=== PATIENT | female | born 1965 | race Caucasian/White ===

== ENCOUNTER 2019-08-13 17:20 | Emergency (ER) | payer MEDICARE, BC ==
--- NOTE | 2019-08-13 18:19 | EDM.PDOC ---
ED HPI GENERAL MEDICAL PROBLEM - General Chief Complaint: General Stated Complaint: DISORIENTED Time Seen by Provider: 08/13/19 18:01 Source of Information: Reports: Patient, Family History Limitations: Reports: No Limitations - History of Present Illness INITIAL COMMENTS - FREE TEXT/NARRATIVE: Patient's unfortunate 54-year-old female who presents in respiratory day with complaint of altered mental status. Family reports the patient was normocytic health until this morning when she started becoming confused. Patient was not willing to eat or drink so she was brought to the emergency department for evaluation. She has a history of metastatic breast cancer reports her last radiation therapy was 5 months ago. On arrival emergency department the patient is oriented to person and place but not time. She denies any symptoms at this time Neck Pain Score (Numeric/FACES): 5 Head Pain Score (Numeric/FACES): 5 - Related Data Allergies Allergy/AdvReac Type Severity Reaction Status Date / Time No Known Allergies Allergy Verified 08/04/18 18:25 Home Meds: Home Meds Alpelisib [Piqray] 1 tab PO DAILY 08/13/19 [History] Past Medical History Oncologic (Cancer) History: Reports: Breast Social & Family History - Tobacco Use Smoking Status *Q: Never Smoker - Caffeine Use Caffeine Use: Reports: Coffee, Soda - Recreational Drug Use Recreational Drug Use: No ED ROS GENERAL - Review of Systems Review Of Systems: Unable To Obtain (Altered mental status) Reason Not Obtained: AMS Constitutional: Denies: Fever, Chills Neurological: Reports: Confusion. Denies: Dizziness, Headache ED EXAM, GENERAL - Physical Exam Exam: See Below Exam Limited By: No Limitations General Appearance: Alert, Mild Distress, Other (Pleasantly confused) Eye Exam: Bilateral Eye: PERRL, Other (Unable to follow commands) Nose: Normal Inspection, Normal Mucosa, No Blood Head: Atraumatic, Normocephalic Neck: Normal Inspection, Supple, Non-Tender, Full Range of Motion Respiratory/Chest: No Respiratory Distress, Lungs Clear, Normal Breath Sounds, No Accessory Muscle Use, Chest Non-Tender Cardiovascular: No Edema, Other (Tachycardia) GI/Abdominal: Normal Bowel Sounds, Soft, Non-Tender, No Organomegaly, No Distention, No Abnormal Bruit, No Mass Back Exam: Normal Inspection, Full Range of Motion, NT Extremities: Normal Inspection, Normal Range of Motion, Non-Tender, Normal Capillary Refill, No Pedal Edema Neurological: Alert, Other (Oriented to person and place only). No: Oriented Skin Exam: Warm, Dry, No Rash EKG INTERPRETATION EKG Date: 08/13/19 Time: 18:30 Rhythm: NSR [place]: Normal P-Wave: Present QRS: Normal ST-T: Normal QT: Normal Course - Vital Signs Last Recorded V/S: Last Vital Signs Temp 99.2 F 08/13/19 17:33 Pulse 100 08/13/19 17:33 Resp 18 08/13/19 17:33 BP 138/94 H 08/13/19 17:33 Pulse Ox 3 L 08/13/19 17:33 - Orders/Labs/Meds Orders: Active Orders 24 hr Category Date Time Status EKG Documentation Completion [RC] ASDIRECTED Care 08/13/19 18:14 Active Insert Weiner Catheter [Insert Urinary Catheter] [OM.PC] Care 08/13/19 20:15 Ordered Stat Urinary Catheter Assessment [RC] ASDIRECTED Care 08/13/19 20:22 Active Chest 1V Frontal [CR] Stat Exams 08/13/19 18:15 Taken CULTURE BLOOD [BC] Stat Lab 08/13/19 19:05 Received CULTURE BLOOD [BC] Stat Lab 08/13/19 19:05 Received Blood Culture x2 Reflex Set [OM.PC] Stat Oth 08/13/19 18:15 Ordered EKG 12 Lead [EK] Stat Ther 08/13/19 18:13 Ordered Labs: Laboratory Tests 08/13/19 08/13/19 08/13/19 Range/Units 19:00 19:00 19:00 WBC 5.83 (3.98-10.04) K/mm3 RBC 4.50 (3.98-5.22) M/mm3 Hgb 13.5 (11.2-15.7) gm/dl Hct 40.5 (34.1-44.9) % MCV 90.0 (79.4-94.8) fl MCH 30.0 (25.6-32.2) pg MCHC 33.3 (32.2-35.5) g/dl RDW Std Deviation 46.1 (36.4-46.3) fL Plt Count 165 L (182-369) K/mm3 MPV 8.5 L (9.4-12.3) fl Neut % (Auto) 67.5 (34.0-71.1) % Lymph % (Auto) 14.4 L (19.3-51.7) % [place] % (Auto) 9.1 (4.7-12.5) % Eos % (Auto) 7.4 H (0.7-5.8) Baso % (Auto) 0.7 (0.1-1.2) % Neut # (Auto) 3.94 (1.56-6.13) K/mm3 Lymph # (Auto) 0.84 L (1.18-3.74) K/mm3 [place] # (Auto) 0.53 H (0.24-0.36) K/mm3 Eos # (Auto) 0.43 H (0.04-0.36) K/mm3 Baso # (Auto) 0.04 (0.01-0.08) K/mm3 Sodium 145 (136-145) mEq/L Potassium 3.6 (3.5-5.1) mEq/L Chloride 106 (98-107) mEq/L Carbon Dioxide 27 (21-32) mEq/L Anion Gap 15.6 H (5-15) BUN 14 (7-18) mg/dL Creatinine 0.6 (0.55-1.02) mg/dL Est Cr Clr Drug Dosing 91.48 mL/min Estimated GFR (MDRD) > 60 (>60) mL/min BUN/Creatinine Ratio 23.3 H (14-18) Glucose 128 H (74-106) mg/dL Lactic Acid 1.0 (0.4-2.0) mmol/L Calcium 9.0 (8.5-10.1) mg/dL Total Bilirubin 0.4 (0.2-1.0) mg/dL AST 27 (15-37) U/L ALT 24 (14-59) U/L Alkaline Phosphatase 66 (46-116) U/L Troponin I < 0.017 (0.00-0.056) ng/mL Total Protein 6.6 (6.4-8.2) g/dl Albumin 3.1 L (3.4-5.0) g/dl Globulin 3.5 gm/dL Albumin/Globulin Ratio 0.9 L (1-2) Urine Color (Yellow) Urine Appearance (Clear) Urine pH (5.0-8.0) Ur Specific [place] (1.005-1.030) Urine Protein (Negative) Urine Glucose (UA) (Negative) Urine Ketones (Negative) Urine Occult Blood (Negative) Urine Nitrite (Negative) Urine Bilirubin (Negative) Urine Urobilinogen (0.2-1.0) Ur Leukocyte Esterase (Negative) Urine RBC (0-5) /hpf Urine WBC (0-5) /hpf Ur Squamous Epith Cells (0-5) /hpf Amorphous Sediment (NOT SEEN) /hpf Urine Bacteria (FEW) /hpf Urine Mucus (FEW) /hpf Urine Opiates Screen (ZVTGJM=464) Ur Buprenorphine Scrn (CUTOFF=10) Ur Oxycodone Screen (UWV9NM=309) Urine Methadone Screen (TIZEAM=364) Ur Propoxyphene Screen (OQNARW=655) Ur Barbiturates Screen (GLKBBO=871) Ur Tricyclics Screen (DMOLJR=383) Ur Phencyclidine Scrn (CUTOFF=25) Ur Amphetamine Screen (QSLPRC=946) U Methamphetamines Scrn (NPZGIZ=954) U Benzodiazepines Scrn (BWULNX=488) U Cocaine Metab Screen (VGLTVM=067) U Marijuana (THC) Screen (CUTOFF=50) Ethyl Alcohol 0.00 (0.00) gm% 08/13/19 08/13/19 Range/Units 20:21 20:21 WBC (3.98-10.04) K/mm3 RBC (3.98-5.22) M/mm3 Hgb (11.2-15.7) gm/dl Hct (34.1-44.9) % MCV (79.4-94.8) fl MCH (25.6-32.2) pg MCHC (32.2-35.5) g/dl RDW Std Deviation (36.4-46.3) fL Plt Count (182-369) K/mm3 MPV (9.4-12.3) fl Neut % (Auto) (34.0-71.1) % Lymph % (Auto) (19.3-51.7) % [place] % (Auto) (4.7-12.5) % Eos % (Auto) (0.7-5.8) Baso % (Auto) (0.1-1.2) % Neut # (Auto) (1.56-6.13) K/mm3 Lymph # (Auto) (1.18-3.74) K/mm3 [place] # (Auto) (0.24-0.36) K/mm3 Eos # (Auto) (0.04-0.36) K/mm3 Baso # (Auto) (0.01-0.08) K/mm3 Sodium (136-145) mEq/L Potassium (3.5-5.1) mEq/L Chloride (98-107) mEq/L Carbon Dioxide (21-32) mEq/L Anion Gap (5-15) BUN (7-18) mg/dL Creatinine (0.55-1.02) mg/dL Est Cr Clr Drug Dosing mL/min Estimated GFR (MDRD) (>60) mL/min BUN/Creatinine Ratio (14-18) Glucose (74-106) mg/dL Lactic Acid (0.4-2.0) mmol/L Calcium (8.5-10.1) mg/dL Total Bilirubin (0.2-1.0) mg/dL AST (15-37) U/L ALT (14-59) U/L Alkaline Phosphatase (46-116) U/L Troponin I (0.00-0.056) ng/mL Total Protein (6.4-8.2) g/dl Albumin (3.4-5.0) g/dl Globulin gm/dL Albumin/Globulin Ratio (1-2) Urine Color Yellow (Yellow) Urine Appearance Slt cloudy H (Clear) Urine pH 6.0 (5.0-8.0) Ur Specific [place] > or = 1.030 (1.005-1.030) Urine Protein Trace H (Negative) Urine Glucose (UA) Negative (Negative) Urine Ketones Negative (Negative) Urine Occult Blood 3+ H (Negative) Urine Nitrite Negative (Negative) Urine Bilirubin Negative (Negative) Urine Urobilinogen 0.2 (0.2-1.0) Ur Leukocyte Esterase Negative (Negative) Urine RBC 40-50 H (0-5) /hpf Urine WBC 0-5 (0-5) /hpf Ur Squamous Epith Cells 0-5 (0-5) /hpf Amorphous Sediment Moderate H (NOT SEEN) /hpf Urine Bacteria Few (FEW) /hpf Urine Mucus Few (FEW) /hpf Urine Opiates Screen Negative (SKXIUG=596) Ur Buprenorphine Scrn Negative (CUTOFF=10) Ur Oxycodone Screen Negative (NRQ0BH=287) Urine Methadone Screen Negative (LSOVTD=765) Ur Propoxyphene Screen Negative (YGACHQ=905) Ur Barbiturates Screen Negative (DYUSIP=028) Ur Tricyclics Screen Negative (PLVTHW=395) Ur Phencyclidine Scrn Negative (CUTOFF=25) Ur Amphetamine Screen Negative (DGVOVZ=263) U Methamphetamines Scrn Negative (XVUXEN=430) U Benzodiazepines Scrn Negative (QYKDMH=227) U Cocaine Metab Screen Negative (JWWFBY=217) U Marijuana (THC) Screen Negative (CUTOFF=50) Ethyl Alcohol (0.00) gm% Meds: Medications Discontinued Medications Generic Name Dose Route Start Last Admin Trade Name Freq PRN Reason Stop Dose Admin Dexamethasone 10 mg 08/13/19 20:04 08/13/19 20:20 Dexamethasone IVPUSH 08/13/19 20:05 10 mg ONETIME ONE Administration - Re-Assessments/Exams Free Text/Narrative Re-Assessment/Exam: 08/13/19 21:[address] Baird at [facility] who accepts patient in transfer Departure - Departure Time of Disposition: 21:15 Disposition: DC/Tfer to Hospice-Med Fac 51 Clinical Impression: Metastatic cancer to brain Altered mental status Qualifiers: Altered mental status type: delirium Qualified Code(s): R41.0 - Disorientation , unspecified - Discharge Information Referrals: Reno Nguyen MD [Primary Care Provider] - Forms: ED Department Discharge Sepsis Event Note - Evaluation Sepsis Screening Result: No Definite Risk - Focused Exam Vital Signs: Vital Signs Temp Pulse Resp BP Pulse Ox 08/13/19 17:33 99.2 F 100 18 138/94 H 3 L Date Exam was Performed: 08/13/19 Time Exam was Performed: 21:15 - My Orders Last 24 Hours: My Active Orders 08/13/19 18:13 EKG 12 Lead [EK] Stat 08/13/19 18:14 EKG Documentation Completion [RC] ASDIRECTED 08/13/19 18:15 Chest 1V Frontal [CR] Stat Blood Culture x2 Reflex Set [OM.PC] Stat 08/13/19 19:05 CULTURE BLOOD [BC] Stat CULTURE BLOOD [BC] Stat 08/13/19 20:15 Insert Weiner Catheter [Insert Urinary Catheter] [OM.PC] Stat 08/13/19 20:22 Urinary Catheter Assessment [RC] ASDIRECTED - Assessment/Plan Last 24 Hours: My Active Orders 08/13/19 18:13 EKG 12 Lead [EK] Stat 08/13/19 18:14 EKG Documentation Completion [RC] ASDIRECTED 08/13/19 18:15 Chest 1V Frontal [CR] Stat Blood Culture x2 Reflex Set [OM.PC] Stat 08/13/19 19:05 CULTURE BLOOD [BC] Stat CULTURE BLOOD [BC] Stat 08/13/19 20:15 Insert Weiner Catheter [Insert Urinary Catheter] [OM.PC] Stat 08/13/19 20:22 Urinary Catheter Assessment [RC] ASDIRECTED
--- NOTE | 2019-08-13 18:56 | CT ---
Head CT Technique: Multiple axial sections through the brain were obtained. Intravenous contrast was not utilized. Findings: Vague intracranial lesions are seen. Numerous calcifications are noted. Ventricles are mildly dilated. No intracranial hemorrhage is seen. No midline shift is appreciated. Bone window settings were reviewed which shows no acute calvarial abnormality. Mastoid sinuses are clear. Visualized paranasal sinuses are clear. Impression: 1. Vague intracranial lesions most likely due to multiple intracranial metastasis. MRI with contrast would be confirmatory. 2. Multiple calcifications within the brain which may relate to the intracranial metastasis or represent treated metastasis. 3. No acute intracranial hemorrhage is seen. Diagnostic code #9 This report was dictated in [place] Standard Time
[2019-08-13] MEDS ORDERED: Dexamethasone 10 MG/ML SDV IVPUSH ONE (20:04)
--- NOTE | 2019-08-14 07:24 | CR ---
Chest: Portable view of the chest was obtained. Comparison: Prior chest CT of 08/04/18. Bilateral pleural effusions are noted larger on the right side. Increased parenchymal density within the right lung base most likely due to compressive atelectasis. Heart size appears within normal limits for portable technique. Right-sided infusion catheter is seen. Bony structures are grossly intact. Sclerotic change is noted within multiple mid to lower thoracic vertebral bodies. Impression: 1. Pleural effusions larger on the right side. Right basilar atelectasis. 2. Right-sided infusion port. 3. 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 4. Nothing acute is definitely appreciated. Diagnostic code #9 This report was dictated in [place] Standard Time
== END 2019-08-13 22:30 | disposition hospice, inpatient (51) ==
LOC: JD.ED 17:20 → SUPCPDRO 17:20 → JD.ED 22:30
DX: C80.1 Malignant (primary) neoplasm, unspecified (principal); C79.31 Secondary malignant neoplasm of brain; R41.0 Disorientation, unspecified
CPT/HCPCS: 36415; 70450; 71045; 80053; 80306; 81001; 83605; 84484; 85025; 87040; 93005; 96374; 99285; G0480; J1100; 93010; 99284